=== PATIENT | female | born 1980 | race Caucasian/White ===

== ENCOUNTER → 2022-10-21 | Outpatient (CLI) | payer BC ==
[2022-10-21 08:58] LABS: HCT 43.5 % (34.0-46.0); HGB 14.2 gm/dL (11.4-16.0); MCHC 32.6 g/dL (31.0-37.0); MCV 85.8 fL (80.0-100.0); Mean Platelet Volume 7.8; Platelet Count 354 k/uL (150-450); RBC 5.07 m/uL (3.80-5.40); WBC 7.8 k/uL (3.8-10.6)
[2022-10-21 09:47] LABS: ALT 24 U/L (4-34); AST 24 U/L (14-36); African American GFR (CKD) >90 (>60 ml/min/1.73 sqM); Albumin 3.9 g/dL (3.5-5.0); Albumin/Globulin Ratio 1.4; Alkaline Phosphatase 43 U/L (38-126); Anion Gap 6 mmol/L; Blood Urea Nitrogen 13 mg/dL (7-17); Calcium 9.4 mg/dL (8.4-10.2); Carbon Dioxide 26 mmol/L (22-30); Chloride 107 mmol/L (98-107); Globulin 2.8 g/dL; Glucose 94 mg/dL (74-99); Non-African American GFR(CKD) >90 (>60 ml/min/1.73 sqM); Potassium 4.8 mmol/L (3.5-5.1); Sodium 139 mmol/L (137-145); Total Bilirubin 1.1 mg/dL (0.2-1.3); Total Protein 6.7 g/dL (6.3-8.2)
--- NOTE | 2022-10-21 17:13 | MM ---
Reason for Exam: Screening (asymptomatic). Baseline mammogram. Patient History: Menarche at age 13. First Full-Term at age 30. Patient has history of breast feeding. Currently using Hormonal Contraceptives, starting at age 30. Maternal grandmother had breast cancer, age 50. Risk Values: Romana 5 year model risk: 0.7%. NCI Lifetime model risk: 11.0%. Prior Study Comparison: Patient's first Mammogram. Tissue Density: There are scattered fibroglandular densities. Findings: Analyzed By CAD. Pattern appears symmetrical. There is some focal distortion in the 12 to 1:00 position left breast. Additional evaluation with compression views and standard mediolateral view are recommended. Within the right breast, no suspicious groups of microcalcifications, spiculated or lobular masses, architectural distortion or other secondary signs of malignancy are mammographically apparent. Overall Assessment: Incomplete: need additional imaging evaluation, BI-RAD 0 Management: Diagnostic Mammogram of the left breast. A negative mammogram report should not preclude additional follow up of suspicious palpable abnormalities. Patient should continue monthly self breast exam. A clinical breast exam by your physician is recommended on an annual basis and results should be correlated with mammographic findings. Electronically signed and approved by: Rafa Lazar D.O. Radiologis
[2022-10-21 17:50] LABS: Chol/HDL Ratio 4.99 Ratio; LDL Cholesterol,Calculated 147.7 mg/dL (0.0-131.0)
[2022-10-21 22:42] LABS: Follicle Stimulating Hormone 3.7 mIU/mL; Luteinizing Hormone 12.3 mIU/mL
== END | disposition home or self-care (01) ==
LOC: RADMAMWWP 06:53
PROVIDERS: ATTEND Obstetrics & Gynecology
DX: Z12.31 Encounter for screening mammogram for malignant neoplasm of breast (principal); Z13.220 Encounter for screening for lipoid disorders; Z13.29 Encounter for screening for other suspected endocrine disorder; Z80.3 Family history of malignant neoplasm of breast
CPT/HCPCS: 77063; 77067; 80053; 80061; 82670; 83001; 83002; 84439; 84443; 84479; 85027

== ENCOUNTER → 2022-10-28 | Outpatient (CLI) | payer BC ==
--- NOTE | 2022-10-28 07:29 | MM ---
Reason for Exam: Additional evaluation requested from abnormal screening. Last screening mammogram was performed less than 1 month ago. Patient History: Menarche at age 13. First Full-Term at age 30. Patient has history of breast feeding. Currently using Hormonal Contraceptives, starting at age 30. Maternal grandmother had breast cancer, age 50. Risk Values: Romana 5 year model risk: 0.7%. NCI Lifetime model risk: 11.0%. Prior Study Comparison: 10/21/2022 Bilateral MG 3D screening mammo w/cad, [facility]. Tissue Density: Left: There are scattered fibroglandular densities. Findings: Analyzed By CAD. The area compresses out within the left superior lateral breast. No new suspicious masses, calcifications or distortions. Overall Assessment: Benign, BI-RAD 2 Management: Screening Mammogram of both breasts in 1 year. Results were given to the patient verbally at the time of exam. Patient should continue monthly self-breast exams. A clinical breast exam by your physician is recommended on an annual basis. This exam should not preclude additional follow-up of suspicious palpable abnormalities. Note on Romana scores and lifetime risk: 1. A Romana score greater than 3% is considered moderate risk. If this is the case, consider specialist referral to assess eligibility for a risk reducing agent. 2. If overall lifetime risk for the development of breast cancer is 20% or higher, the patient may qualify for future screening with alternating mammogram and breast MRI. Electronically signed and approved by: Ronnie Ahmadi DO
== END | disposition home or self-care (01) ==
LOC: RADMAMWWP 06:59
PROVIDERS: ATTEND Obstetrics & Gynecology
DX: R92.8 Other abnormal and inconclusive findings on diagnostic imaging of breast (principal); Z80.3 Family history of malignant neoplasm of breast
CPT/HCPCS: 77061; 77065